=== PATIENT | male | born 1975 | race African-American/Black ===

== ENCOUNTER 2021-09-01 09:24 | Emergency (ER) | payer SELFPAY ==
[~2021-09-01] VITALS: Ht 180.3 cm; Wt 79.4 kg
--- NOTE | 2021-09-01 09:39 | NUR ---
Dr Crobett at the bedside for MSE.
[2021-09-01] MEDS: IV NORMAL SALINE 1000 ML BAG IV ONE (09:45)
[2021-09-01] MEDS: ONDANSETRON 4 MG/2 ML VIAL IV ONE (09:53)
[2021-09-01] MEDS ORDERED: ONDANSETRON 4 MG/2 ML VIAL ONE (10:00)
[2021-09-01] MEDS: FAMOTIDINE. 20 MG/2 ML VIAL IV ONE (10:00)
[2021-09-01] MEDS: LORAZEPAM 2 MG/1 ML VIAL IV ONE (10:01)
[2021-09-01] MEDS ORDERED: FAMOTIDINE. 20 MG/2 ML VIAL IV ONE (10:04)
[2021-09-01] MEDS ORDERED: LORAZEPAM 2 MG/1 ML VIAL ONE (10:04)
[2021-09-01 10:24] LABS: HEMATOCRIT 43.7 % (36.7-47.1); MEAN CORPUSCULAR HEMOGLOBIN 34.4 uug (23.8-33.4); MEAN CORPUSCULAR VOLUME 101.2 fL (73.0-96.2); PLATELET COUNT (AUTO) 210 K/uL (152-348)
[2021-09-01 10:35] LABS: CREATININE 1.2 mg/dL (0.6-1.3); POTASSIUM 3.3 mmol/L (3.5-5.1)
[2021-09-01 10:46] LABS: BILIRUBIN,DIRECT 0.2 mg/dL (0.0-0.2); BILIRUBIN,TOTAL 0.8 mg/dL (0.2-1.0); TOTAL PROTEIN, SERUM 7.1 g/dL (6.4-8.2)
[2021-09-01] MEDS: POTASSIUM CHLORIDE 20 MEQ TAB.PRT.SR PO ONE (10:49)
[2021-09-01] MEDS ORDERED: POTASSIUM CHLORIDE 20 MEQ TAB.PRT.SR ONE (10:56)
--- NOTE | 2021-09-01 10:59 | NUR ---
Pt was able to tolorate PO intake, no C/O nausea.
[2021-09-01] MEDS ORDERED: OMEP20CA15 PO (11:11)
[2021-09-01] MEDS ORDERED: ONDA4TAB11 PO (11:11)
--- NOTE | 2021-09-01 11:18 | NUR ---
IV removed. Catheter intact and site benign. Pressure and 4x4 gauze applied to site. No bleeding noted.
[2021-09-01 11:19] VITALS: BP 123/67
--- NOTE | 2021-09-01 11:21 | NUR ---
Patient discharged to home in stable condition. Written and verbal after care instructions given. Patient verbalizes understanding of instructions. Stressed follow up or return to ER for worsening s/s.
== END 2021-09-01 11:21 | disposition home or self-care (01) ==
LOC: ER 09:24
DX: R11.2 Nausea with vomiting, unspecified (principal); E87.6 Hypokalemia; Z79.899 Other long term (current) drug therapy
CPT/HCPCS: 36415; 80048; 80076; 83690; 85025; 96361; 96374; 96375; 99284; J2060; J2405; J3490; A4663; J7030